=== PATIENT | female | born 1980 | race Two or more races ===

== ENCOUNTER 2023-12-01 23:14 | Emergency (ER) | payer OTHER ==
[~2023-12-01] VITALS: Ht 154.9 cm; Wt 54.4 kg
[2023-12-02] MEDS ORDERED: DEXAMETHASONE SODIUM PHOSPHATE 4 MG/ML VIAL IV STA (01:12)
[2023-12-02] MEDS ORDERED: KETOROLAC TROMETHAMINE 30 MG VIAL IV STA (01:12)
[2023-12-02] MEDS ORDERED: ACETAMINOPHEN 500 MG GEL..CAP PO STA (01:13)
[2023-12-02] MEDS ORDERED: CLINDAMYCIN PHOSPHATE 150 MG/ML (600mg) IV STA (01:14)
== END 2023-12-02 03:24 | disposition home or self-care (01) ==
LOC: ER 23:16
DX: K03.81 Cracked tooth (principal); K05.10 Chronic gingivitis, plaque induced; K05.219 Aggressive periodontitis, localized, unspecified severity